=== PATIENT | male | born 1930 | race Caucasian/White ===

== ENCOUNTER → 2016-04-26 | Outpatient (CLI) | payer MEDICARE ==
[2016-04-26 10:24] LABS: COLLAGEN ADP 69 SECONDS (56-103)
--- NOTE | 2016-04-26 23:10 | ECGEPIP ---
Stationary ECG Study [facility] Test Date: 2016-04-26 Pat Name: NASRA AVENDAÑO Department: Room: - Gender: M Storehouse Clerk: ENRRIQUE : 1930 Requested By: LUZ ELENA Wirght Order Number: [id number] Reading MD: Radha Hinton Measurements Intervals [place] Rate: 53 P: 19 RI: 162 QRS: -31 QRSD: 86 T: -2 QT: 426 QTc: 400 Interpretive Statements SINUS BRADYCARDIA MARKED LEFT AXIS DEVIATION POSSIBLE ANTERIOR MYOCARDIAL INFARCTION, OF INDETERMINATE AGE NO PRIOR Electronically Signed On 04-26-2016 23:10:49 EST by Radha Hinton
== END ==
LOC: M LAB 09:30
PROVIDERS: ATTEND Ophthalmology
DX: Z01.818 Encounter for other preprocedural examination (principal); H25.13 Age-related nuclear cataract, bilateral

== ENCOUNTER → 2016-06-28 | Outpatient (REF) | payer MEDICARE | LOC: M SFHCPLAZ 11:31 | PROVIDERS: ATTEND Dermatology | DX: C44.320 Squamous cell carcinoma of skin of unspecified parts of face (principal); C44.622 Squamous cell carcinoma of skin of right upper limb, including shoulder | CPT/HCPCS: 11100; 11101; 88305; G0463 ==

== ENCOUNTER → 2016-09-06 | Outpatient (REF) | payer MEDICARE | LOC: M SFHCPLAZ 14:20 | PROVIDERS: ATTEND Dermatology | DX: D04.22 Carcinoma in situ of skin of left ear and external auricular canal (principal) | CPT/HCPCS: 11100; 88305; G0463 ==

== ENCOUNTER → 2018-12-11 | Outpatient (REF) | payer MEDICARE ==
[2018-12-11 20:27] LABS: APPEARANCE, URINE CLEAR (CLEAR); BACTERIA, URINE AUTO NEGATIVE (NEGATIVE); BILIRUBIN, URINE AUTO NEGATIVE (NEGATIVE); BLOOD, URINE BLOOD NEGATIVE (NEGATIVE); CALCIUM OXALATE CRYSTALS SMALL; COLOR, URINE YELLOW (YELLOW); GLUCOSE, URINE (UA) AUTO NEGATIVE (NEGATIVE); KETONE, URINE AUTO NEGATIVE (NEGATIVE); LEUKOCYTE ESTERASE, URINE AUTO NEGATIVE (NEGATIVE); MUCUS, URINE SMALL (NEGATIVE); NITRITE, URINE AUTO NEGATIVE (NEGATIVE); PROTEIN, URINE AUTO NEGATIVE (NEGATIVE); RBC, URINE AUTO 1 /HPF (0-3); SPECIFIC GRAVITY URINE AUTO 1.024 (1.002-1.035); SQUAMOUS EPITHELIAL CELL UR AU 0 /HPF (0-6); UROBILINOGEN, URINE AUTO 0.2 mg/dL (0.0-2.0); WBC, URINE AUTO 2 /HPF (0-3)
== END ==
LOC: M SMT 17:28
PROVIDERS: ATTEND Nurse Practitioner Women's Health
DX: R35.0 Frequency of micturition (principal)
CPT/HCPCS: 51798; 81001; 87086; G0463